=== PATIENT | female | born 1990 | race Caucasian/White ===

== ENCOUNTER 2016-09-09 14:16 | Emergency (ER) | payer OTHER ==
[2016-09-09 15:16] LABS: BILIRUBIN,URINE NEG (NEG); CLARITY,URINE CLEAR; COLOR,URINE YELLOW; GLUCOSE,URINE NEG (NEG)
[2016-09-09 15:17] LABS: NITRITE,URINE NEG (NEG); UROBILINOGEN,URINE 0.2 mg/dL (0.2 mg/dL)
--- NOTE | 2016-09-09 15:18 | PHYS DOC ---
General Chief Complaint: FLANK PAIN Stated Complaint: LEFT FLANK PAIN, BACK PAIN Time Seen by MD: 14:20 Source: patient Exam Limitations: no limitations Problems: History of Present Illness Initial Comments Pt is 26/F to ED c/o L flank pain. Pt has h/o kidney stones, thinks she has recurrance. She states 3 weeks left flank pain intermittent, pt states she was trying to pass stone at home. Pain much worse today, pt states she can no longer stand the pain. No hematuria noted, she's had some hesitancy no fever/myalgia/n/v. Timing/Duration: getting worse, other Severity: severe Modifying Factors: improves with other Associated Symptoms: other Allergies: Coded Allergies: aripiprazole (Unverified Allergy, Intermediate, 01/20/15) Past Medical History Medical History: kidney stones Surgical History: noncontributory Social History Smoker: cigarettes Alcohol: none Drugs: none Review of Systems Constitutional: denies chills, denies fever, malaise Respiratory: denies cough, denies shortness of breath Cardiovascular: denies chest pain, denies palpitations Gastrointestinal: abdominal paindenies diarrhea, denies nausea, denies vomiting Genitourinary: see HPI Musculoskeletal: see HPIdenies joint swelling, denies neck pain Psychiatric/Neurological: denies headache, denies numbness, denies paresthesia , denies weakness Hematologic/Lymphatic: denies blood clots, denies easy bleeding, denies easy bruising Physical Exam General Appearance: WD/WN, moderate distress Eyes: bilateral eye EOMI, bilateral eye PERRL, bilateral eye normal inspection Ear, Nose, Throat: hearing grossly normal, normal ENT inspection, normal pharynx Neck: non-tender, supple Respiratory: normal breath sounds, no respiratory distress Cardiovascular: normal peripheral pulses, regular rate, rhythm Gastrointestinal: soft (ND, mild L-abd TTP no r/g/mass, BS diminished) Back: no vertebral tenderness, CVA tenderness (L) Extremities: non-tender, normal inspection Neurologic/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 PHYSICIAN: JOLEEN BROWN DO REASON: L flank pain, r/o stone PROCEDURE: ABDOMEN PELVIS WO CONTRAST EXAM: Abdomen and pelvis CT without intravenous contrast. HISTORY: Left flank pain. TECHNIQUE: Computed tomographic images of the abdomen and pelvis were obtained without contrast. Multiplanar reformatting was performed. COMPARISON: None. FINDINGS: Evaluation of the lower thorax is unremarkable. The liver is upper normal in size. No focal hepatic lesion is seen. The gallbladder, pancreas, spleen and adrenal glands are unremarkable. There is mild to moderate right hydronephrosis and hydroureter secondary to an obstructing 7 mm stone within the distal ureter slight proximal to the ureterovesical junction. No additional renal or ureteral stone is seen. There is a 4 mm calcification adjacent to the tip of the appendix, likely a phlebolith rather than appendicolith. There are colonic diverticuli. There is no obstruction. No pathologically enlarged lymph node is seen. The uterus is anteverted. There are multiple ovarian follicles, with a dominant left ovarian follicle/follicular cyst measuring 1.8 cm. There is a small amount of pelvic free fluid, within physiologic limits. There is no suspicious osseous lesion. IMPRESSION: 1. Mild to moderate left hydronephrosis secondary to a 7 mm stone within the distal ureter slightly proximal to the UVJ. 2. Colonic diverticulosis. 3. 1.8 cm dominant left ovarian follicle/follicular cyst. PQRS Compliance Statement: One or more of the following individualized dose reduction techniques were utilized for this examination: 1. Automated exposure control 2. Adjustment of the mA and/or kV according to patient size 3. Use of iterative reconstruction technique DICTATED AND SIGNED BY: OSVALDO REBOLLEDO MD DATE: 09/09/16 1526 CC: PCP,NO; JOLEEN BROWN DO ~ 1553: Discussed findings with pt. Discussed need for clean catch urine specimen to determine whether UTI with the ureter obstruction. CBC/BMP ordered as well. Pt agreeable to inpatient treatment if Urology recommends. Urology paged. 1607: Pt discussed with Dr Segura Urology. If sx can be controlled recommends d/ c with cipro/flomax/lortab, if not will see pt at [facility]. 1611: After 1mg dilaudid IV pt still with 6/10 pain down from 10/10. Pt does not feel she can do this at home, requests inpatient treatment. Will contact hospitalist for acceptance and notify Dr Segura pt going to [facility]. 1621: Dr Cisneros accepts pt for transfer and medsurg admission, Dr Segura will consult. RN will notify Dr Segura pt transferring to [facility]. Departure Time of Disposition: 16:31 Disposition: 05 XFER OTHER Diagnosis: 7mm distal L ureterolithiasis w/hydronephrosis, UT Condition: STABLE Additional Instructions: EMS transfer to [facility] for medsurg admission Dr Cisneros is accepting Dr Segura to consult. JOLEEN BROWN DO Sep 09, 2016 15:18
--- NOTE | 2016-09-09 15:33 | RAD ---
EXAM: Abdomen and pelvis CT without intravenous contrast. HISTORY: Left flank pain. TECHNIQUE: Computed tomographic images of the abdomen and pelvis were obtained without contrast. Multiplanar reformatting was performed. COMPARISON: None. FINDINGS: Evaluation of the lower thorax is unremarkable. The liver is upper normal in size. No focal hepatic lesion is seen. The gallbladder, pancreas, spleen and adrenal glands are unremarkable. There is mild to moderate right hydronephrosis and hydroureter secondary to an obstructing 7 mm stone within the distal ureter slight proximal to the ureterovesical junction. No additional renal or ureteral stone is seen. There is a 4 mm calcification adjacent to the tip of the appendix, likely a phlebolith rather than appendicolith. There are colonic diverticuli. There is no obstruction. No pathologically enlarged lymph node is seen. The uterus is anteverted. There are multiple ovarian follicles, with a dominant left ovarian follicle/follicular cyst measuring 1.8 cm. There is a small amount of pelvic free fluid, within physiologic limits. There is no suspicious osseous lesion. IMPRESSION: 1. Mild to moderate left hydronephrosis secondary to a 7 mm stone within the distal ureter slightly proximal to the UVJ. 2. Colonic diverticulosis. 3. 1.8 cm dominant left ovarian follicle/follicular cyst. PQRS Compliance Statement: One or more of the following individualized dose reduction techniques were utilized for this examination: 1. Automated exposure control 2. Adjustment of the mA and/or kV according to patient size 3. Use of iterative reconstruction technique
[2016-09-09] MEDS ORDERED: CEFTRIAXONE SODIUM 1 GM in IV NORMAL SALINE 50ML 50 ML IV ONE (15:45)
[2016-09-09] MEDS ORDERED: ONDANSETRON PF 4 MG/2 ML VIAL. ONE (15:53)
[2016-09-09 16:05] LABS: BASO # 0.1 x10^3/uL (0.0-0.2); BASO % 1 % (0-3); EOS # 0.1 x10^3/uL (0.0-0.7); EOS % 1 % (0-3); HEMATOCRIT 44.5 % (36.0-47.0); HEMOGLOBIN 14.9 g/dL (12.0-15.5); LYMPH # 2.7 x10^3/uL (1.0-4.8); LYMPH % 15 % (24-48); MEAN CORPUSCULAR HEMOGLOBIN 29 pg (25-35); MEAN CORPUSCULAR HGB CONC 33 g/dL (31-37); MEAN CORPUSCULAR VOLUME 88 fL (79-100); MONO % 6 % (0-9); NEUT % 78 % (31-73); PLATELET COUNT 296 x10^3/uL (140-400); RED BLOOD COUNT 5.06 x10^6/uL (3.50-5.40); RED CELL DISTRIBUTION WIDTH 14.7 % (11.5-14.5); WHITE BLOOD COUNT 17.9 x10^3/uL (4.0-11.0)
[2016-09-09] MEDS ORDERED: IV NORMAL SALINE 50ML 50 ML ONE (16:08)
[2016-09-09] MEDS ORDERED: CEFTRIAXONE SODIUM 1 GM VIAL IV ONE (16:09)
[2016-09-09 16:12] LABS: CALCIUM 9.2 mg/dL (8.5-10.1); CREATININE 1.3 mg/dL (0.6-1.0); GFR 49.1; POTASSIUM 3.7 mmol/L (3.5-5.1)
[2016-09-09] MEDS ORDERED: TAMSULOSIN 0.4 MG CAP.ER.24H. PO ONE (16:15)
[2016-09-09] MEDS ORDERED: ONDANSETRON PF 4 MG/2 ML VIAL. IV ONE (16:15)
[2016-09-09] MEDS ORDERED: KETOROLAC 30 MG/ML VIAL. IV ONE (16:15)
[2016-09-09] MEDS ORDERED: HYDROMORPHONE PF 1 MG/ML DISP.SYRIN. IV ONE ×3 (16:15→20:30)
[2016-09-09 17:25] VITALS: BP 143/83
[2016-09-09 18:40] LABS: % EOS 2 % (0-5); % LYMPHS 11 % (24-48); % MONOS 6 % (0-10); % SEGS 81 % (35-66)
[2016-09-09 18:41] LABS: PLT ESTIMATE ADEQUATE (ADEQUATE)
== END 2016-09-09 20:20 | disposition short-term general hospital (02) ==
LOC: ER 14:16
DX: N13.2 Hydronephrosis with renal and ureteral calculous obstruction (principal); N39.0 Urinary tract infection, site not specified; F17.210 Nicotine dependence, cigarettes, uncomplicated; Z88.8 Allergy status to other drugs, medicaments and biological substances
CPT/HCPCS: 36415; 74176; 80048; 81003; 81025; 85007; 85027; 87086; 96365; 96375; 96376; 99285; J0696; J1170; J1885; J2405